=== PATIENT | male | born 1985 | race Caucasian/White ===

== ENCOUNTER 2017-12-21 12:42 | Emergency (ER) | payer OTHER, SELFPAY ==
[2017-12-21 12:43] VITALS: BP 155/95; PULSE 79; RESP 12; TEMP 36.8; BMI 31.7
--- NOTE | 2017-12-21 13:03 | RAD_ITS ---
STUDY: X-RAY - RIGHT SHOULDER REASON FOR EXAM: Arm gave out while lifting today with numbness/tingling in right shoulder. TECHNIQUE: 4 view(s) of the shoulder. COMPARISON: None. FINDINGS: There is a small osteophyte of the medial inferior humeral head. There is acromioclavicular joint space narrowing. Normal acromion. Normal humeral head and visualized proximal humerus. The soft tissue structures are unremarkable. Normal visualized pulmonary apex. RAD/Shoulder min 2 Views IMPRESSION: Acromioclavicular arthrosis. Small osteophyte of the humeral head. No demonstrated fracture. Electronically Signed: Loc Ibrahim MD at 13:35 EDT Tel , Service support ,
--- NOTE | 2017-12-21 13:16 | ED.VISSUMM ---
- ER Visit Summary Date of Service: 12/21/17 Chief Complaint: Right shoulder pain History of Present Illness: The patient is a 32 M who sees [employer]. He is right-hand dominant. Reports approximately an hour and a half ago he was benching 100 pound dumbbells and was group home up when he had the abrupt onset of numbness and tingling throughout his entire right arm and he lost control and the dumbbell fell onto his chest. Reports that the paresthesias have now resolved. However, when he tries to abduct his arm feels weak. Reports initially he had a sharp pain in both the anterior posterior areas of his deltoid that was 8 out of 10 severity. Pain is now 2 out of 10 severity. Is worsened by pressure, abduction, or external rotation. Is relieved by rest. Patient reports that he has had problems with his shoulder off and on for years. Physical Examination: Vitals: Stable. Afebrile. General: Well-nourished and well-developed. Head: Normocephalic atraumatic. Neck: Supple, no lymphadenopathy. No JVD. Nontender. Cardiovascular: Regular rate and rhythm. No murmurs. Respiratory: No respiratory distress. Clear to auscultation bilaterally. Abdominal: Soft, nontender, nondistended, normal bowel sounds. No guarding, rebound, or peritoneal signs. Back: Nontender. Extremities: Mild tenderness to palpation to the anterior and posterior deltoid on the right. Pain with abduction active greater than passive. Minimal pain with external rotation. He has good range of motion without difficulty. Is a 2+ radial pulse. He has normal sensation to light touch in the C5-T1 distribution. He has normal median, ulnar, and radial nerve function both motor and sensory distributions.. Skin: Normal color, no rash. Neurologic: Alert and oriented ?3. Cranial nerves II through XII are intact. Normal strength and sensation. Psych: Normal affect. Test Results: Right shoulder x-ray shows no acute disease. Emergency Department Course and Treatment: Had a prolonged discussion with the patient about possible causes for this. There is the possibility that he has a torn labrum and had a subluxation of his shoulder while lifting that pushed on the brachioplexus and that caused the paresthesias. Also discussed possibility of a rotator cuff tear. He does understand that to diagnose these he will need an MRI. Treatment Plan: Patient will be discharged instructions to follow-up Dr. Lau in 1 week if not improving. Return to the emergency department for any worsening symptoms. Disposition: To home in improved and stable condition. Impression: 1. Right shoulder pain, uncertain cause. This note was generated with [employer] dictation software. It may contain incorrect words, spelling, and punctuation that were not noted in review of the chart prior to signing ED Disposition - Plan for ED Patient: Chief Complaint: Upper Extremity Injury Instructions: ED Shoulder Pain [facility] Referrals: Miguelangel Lau DO [STAFF PHYSICIAN] - 1 Week if not improving
--- NOTE | 2017-12-21 13:20 | ED.DCSUM_ITS ---
- ER Visit Summary Date of Service: 12/21/17 Chief Complaint: Right shoulder pain History of Present Illness: The patient is a 32 M who sees [id number]. He is right-hand dominant. Reports approximately an hour and a half ago he was benching 100 pound dumbbells and was [facility] up when he had the abrupt onset of numbness and tingling throughout his entire right arm and he lost control and the dumbbell fell onto his chest. Reports that the paresthesias have now resolved. However, when he tries to abduct his arm feels weak. Reports initially he had a sharp pain in both the anterior posterior areas of his deltoid that was 8 out of 10 severity. Pain is now 2 out of 10 severity. Is worsened by pressure, abduction, or external rotation. Is relieved by rest. Patient reports that he has had problems with his shoulder off and on for years. Physical Examination: Vitals: Stable. Afebrile. General: Well-nourished and well-developed. Head: Normocephalic atraumatic. Neck: Supple, no lymphadenopathy. No JVD. Nontender. Cardiovascular: Regular rate and rhythm. No murmurs. Respiratory: No respiratory distress. Clear to auscultation bilaterally. Abdominal: Soft, nontender, nondistended, normal bowel sounds. No guarding, rebound, or peritoneal signs. Back: Nontender. Extremities: Mild tenderness to palpation to the anterior and posterior deltoid on the right. Pain with abduction active greater than passive. Minimal pain with external rotation. He has good range of motion without difficulty. Is a 2 + radial pulse. He has normal sensation to light touch in the C5-T1 distribution. He has normal median, ulnar, and radial nerve function both motor and sensory distributions.. Skin: Normal color, no rash. Neurologic: Alert and oriented ?3. Cranial nerves II through XII are intact. Normal strength and sensation. Psych: Normal affect. Test Results: Right shoulder x-ray shows no acute disease. Emergency Department Course and Treatment: Had a prolonged discussion with the patient about possible causes for this. There is the possibility that he has a torn labrum and had a subluxation of his shoulder while lifting that pushed on the brachioplexus and that caused the paresthesias. Also discussed possibility of a rotator cuff tear. He does understand that to diagnose these he will need an MRI. Treatment Plan: Patient will be discharged instructions to follow-up Dr. Lau in 1 week if not improving. Return to the emergency department for any worsening symptoms. Disposition: To home in improved and stable condition. Impression: 1. Right shoulder pain, uncertain cause. This note was generated with [employer] dictation software. It may contain incorrect words, spelling, and punctuation that were not noted in review of the chart prior to signing ED Disposition - Plan for ED Patient: Chief Complaint: Upper Extremity Injury Instructions: ED Shoulder Pain [facility] Referrals: Miguelangel Lau DO [STAFF PHYSICIAN] - 1 Week if not improving
[2017-12-21 13:49] VITALS: BP 134/83; PULSE 63; RESP 16; O2SAT 98
== END 2017-12-21 13:50 | disposition home or self-care (01) ==
PROVIDERS: Emergency Provider Emergency Medicine; Family Provider Family Medicine; PCP Family Medicine
DX: M25.511 Pain in right shoulder (principal); F17.220 Nicotine dependence, chewing tobacco, uncomplicated
CPT/HCPCS: 73030; 99282

== ENCOUNTER → 2019-10-17 | Outpatient (CLI) | payer OTHER, SELFPAY ==
--- NOTE | 2019-10-17 15:47 | MRI_ITS ---
STUDY: MRI LEFT ANKLE WITHOUT CONTRAST REASON FOR EXAM: Male, 34 years old. left ankle pain, lateral foot and ankle pain, medial tarsal pain, injury 2 yrs ago TECHNIQUE: Standardized fat and water weighted pulse sequences were obtained in all 3 orthogonal planes. COMPARISON: Left ankle x-ray dated November 11, 2015 FINDINGS: No visualized occult fracture or marrow edema. No visualized osteochondral defect. There is mild narrowing of the posterior talocalcaneal articulation and the associated osseous resulting in minimal degenerative-type edema on both sides of the articulation and a small effusion around this region. Mild patchy edema is present in the anterior process of the talus as well as the calcaneus and throughout the cuboid bone. Minor patchy edema is present in the navicular bone which also show some minor cortical erosions and mild osteophyte formation. Mild osteophyte formation is also present in the navicular cuneiform articulations on the dorsal surface. Edema is also seen in the joint capsule lining compatible with synovitis. Mild subcutaneous edema is present. Normal posterior tibialis tendon. Normal flexor digitorum longus tendon. Normal flexor hallucis longus tendon. Normal peroneus longus and brevis tendons. Normal tibialis anterior tendon. Normal extensor hallucis longus tendon. Normal extensor digitorum longus tendons. Normal Achilles tendon and teno-osseous insertion. Normal plantar fascia. Normal plantar calcaneal tubercles. Normal intrinsic muscles of the rearfoot. Normal distal tibiofibular syndesmotic ligamentous complex. Normal lateral ligamentous complex. Normal subtalar ligaments and sinus tarsi. Normal deltoid ligamentous complexes. Normal plantar calcaneonavicular (spring) ligament. Normal tibiotalar articulation. Normal talar dome. MRI/Lower Ext Joint Only (Routine) IMPRESSION: 1. Findings can be seen with either combined degenerative and inflammatory osteoarthritis as well as early Charcot arthropathy. 2. Edema is also seen in the joint capsule lining compatible with synovitis. Electronically Signed: Brando Paz MD at 23:28 EDT , Service support ,
== END | disposition home or self-care (01) ==
LOC: MRI 15:35
PROVIDERS: PCP Nurse Practitioner Family; Referring Provider Podiatrist Foot & Ankle Surgery; Visit Provider Podiatrist Foot & Ankle Surgery
DX: M19.072 Primary osteoarthritis, left ankle and foot (principal)
CPT/HCPCS: 73721

== ENCOUNTER 2019-11-15 19:11 | Observation (INO) | payer OTHER, SELFPAY ==
--- NOTE | 2019-11-11 13:32 | HP.PCM_ITS ---
History and Physical History and Physical Patient Name: Martínez Deras : 1985 From: LASHAE GERMAIN NP DATE OF SURGERY: 11/15/2019 SCHEDULED PROCEDURE: Left subtalar joint fusion, talonavicular joint fusion and gastrocnemius recession HISTORY OF PRESENT ILLNESS: Preoperative history and physical exam was performed on November 09, 2019. This is a 34-year-old male who has been having left foot and ankle pain for over 2 years. The patient states he injured his left foot and ankle while helping a friend move and stepped off a curb rolling his left foot and ankle. He did not initially seek treatment for the pain. Since the injury he has had increased pain in the area. He is an active person and enjoys to run. 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 These activities increase the pain. The pain is located around his ankle and in the middle of the foot. He experiences pain, pressure and swelling in the left foot and ankle. He describes the pain as aching and sharp. The pain is 10 on a scale of 10 at worst, 5 on a scale of 10 on average and 2 on a scale of 10 at best. The pain is made worse with stairs, running and walking. Previous treatments include rest, elevation, ice and nonsteroidal anti-inflammatories. He denies any fevers, chills, nausea, vomiting, shortness of breath or chest pain. He denies calf pain. He denies any pertinent medical history. After failing conservative measures and discussing treatment options with Dr. Landon Melendez the patient does wish to proceed with a left subtalar joint fusion, talonavicular joint fusion and gastrocnemius recession. REVIEW OF SYSTEMS: ROS: Const: Denies change in appetite, fever and weight change. CV: Denies chest pain, heart murmur and irregular heartbeat. Resp: Denies cough, pneumonia, shortness of breath, tuberculosis and wheezing. GI: Denies constipation, diarrhea, heartburn, nausea, rectal itching, bloody stools and vomiting. : Denies incontinence. Musculo: Admits to left foot/ankle swelling and pain. Skin: Reports tattoo, but denies Raynaud's and history of shingles. Neuro: Reports numbness/tingling but denies ambulatory dysfunction, dizziness and tremor. Psych: Denies anxiety, insomnia and stress. Justin/Lymph: Denies anemia, bleeding/bruising tendency and past transfusion. Reviewed, no changes. PAST MEDICAL HISTORY: Advance Care Plan: No Advance Directives Effective Date: 12/27/2017 PMH: Medical Problems: Arthritis Accidents: Fracture - (1998) SKULL CHEEKBONE Sports Related Injury - LT KNEE ACL Surgical Hx: LT ACL Repair Skull Surgery - W/METAL PLATES IN FORHEAD Tonsillectomy Anesthesia Complications: None Assistive Devices: Glasses, Contacts Reviewed and updated. 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 Personal Habits: Cigarette Use: Never Smoked Cigarettes.Smokeless Tobacco: Current Smokeless Tobacco User.E-Cigarette Use: Smoker, current status unknow.Alcohol: Occasionally.Drug Use: Denies Use.Enjoy Exercising: Daily. Reviewed, no changes. VITALS: Ht: 71.5 Wt: 240lb Wt k.864 BMI: 33.0 BP: 118/80 Pulse: 70 Resp: 16 T: 97.4 T: 36.3C ALLERGIES: No Known Drug Allergy MEDICATIONS: Doxycycline Hyclate 100 mg 1 by mouth twice a day, Aspirin 325 mg 1 by mouth twice a day x 14 days, Hydrocodone-Acetaminophen 5-325 mg 1-2 by mouth 4-6 hours as needed pain, Diclofenac Sodium 1 % apply to affected area up to 4 times daily PRE-OP EXAM: General appearance:NORMAL Other: Eyes: Conjunctivae and lids: NORMAL Pupils: ERR Ears, Nose, Mouth, and Throat: NORMAL Other: Inspection of lips, teeth and gums: NORMAL Other: Respiratory: Assessment of respiratory effort: NORMAL Other: Auscultation of lungs: clear to auscultation no wheezes, rhonchi or rales. Cardiovascular: Auscultation of heart: regular rate and rhythm, no murmurs, gallops or rubs. Gastrointestinal: Exam of abdomen: soft, nontender, nondistended bowel sounds present. Neurological: see below Psychiatric: Orientation to time, place and person: NORMAL Other: Mood and affect: NORMAL Other: PHYSICAL EXAMINATION: Const: Appears the stated age and well nourished. No signs of acute distress present. CV: Pedal pulses: palpable. Extremities: No edema of the lower limbs bilaterally. No venous insufficiency noted. Capillary refill is < 3 seconds. Temperature is warm and equal bilaterally. No tenderness on compression of the gastrocnemius muscle. Musculo: Walks with a markedly left antalgic gait. Evidence of moderately pronated left foot when compared to the contralateral side. Evidence of calcaneal valgus deformity noted with a decrease in arch height noted upon weightbearing. Positive too many toe sign of the left lower extremity. Knees: Special Tests: Agustín's sign is negative on the left. Ankles: Insp/Palp: Left ankle: positive tenderness upon palpation and compression of the area of the anterior talofibular ligament of the left ankle. No other areas of tenderness noted of the left ankle. Stability: No instability of the left ankle. No instability of the right ankle. Strength: Dorsiflexion 5/5 on the left. Plantarflexion 5/5 on the left. Eversion 5/5 on the left. Inversion 5/5 on the left. ROM: Left ankle: full active plantar flexion. Limited active dorsiflexion. PROM: Left dorsiflexion with knee extended is decreased. Left dorsiflexion with knee flexed is limited positive for equinus contracture. Left plantar flexion is normal. Special Tests: Anterior drawer test is negative on the left and is negative on the right. Heel Rise: painful, heel does not invert, arch reconstitutes and positive for too many toes on the left. Talar tilt is equal as compared to the opposite side. Hindfoot: Insp/Palp: Significant pain on palpation and compression of the left hindfoot in the area of the sinus tarsi and subtalar joint. Significant restricted eversion and inversion of the left subtalar joint when compared to the contralateral side. No other areas of tenderness noted. Feet: Insp/Palp: Left foot normal to inspection. Positive tenderness upon palpation and compression of the dorsal aspect of the tarsometatarsal joint of the left foot. No other areas of tenderness of the left foot. Strength: 5/5 on the left. Toes: Insp/Palp: Normal to inspection. Skin: No ecchymosis, lesion, rash or ulcerations located on the feet. No maceration located on the toes. Neuro: Alert and oriented x3. Sensation intact to light touch. Negative Tinel's sign of the left foot. Negative Valleix sign of the left foot. IMAGING STUDIES: 3 views of left foot obtained on October 09, 2019 including AP, lateral and medial oblique views reveal significant degenerative joint disease noted in the subtalar joint. There is no evidence of tarsal coalition present. Significant degenerative joint disease noted throughout the midtarsal joint specifically in the talonavicular joint. Evidence of bone spur formation throughout. The tarsometatarsal joint of the left foot reveals minimal degenerative joint disease. His planus deformity revealed with a decrease in the calcaneal inclination angle and increase in the talar declination angle. There is evidence of first metatarsal elevation and abduction of the forefoot against the midfoot and rear foot. MRI of left ankle obtained on October 17, 2019 reveals no occult fracture or marrow edema. No visualized osteochondral defect. There is narrowing of the posterior talocalcaneal articulation and the associated osseous resulting in degenerative type edema on both sides of the articulation with the fusion. Mild patchy edema noted in the anterior process of the talus, calcaneus and throughout the cuboid. Patchy edema noted in the navicular bone with cortical erosions and osteophyte formation. Osteophyte formation in the navicular cuneiform articulations. Normal posterior tibialis tendon. Normal flexor digitorum longus and flexor Hallucis longus. Normal distal tibial fibular syndesmotic ligamentous complex. Normal lateral ligamentous complex. IMPRESSION: 1. Left foot and ankle osteoarthritis 2. Shortened Achilles tendon 3. Pes planus, left foot and ankle 4. Left foot and ankle joint pain PLAN: Dr. Landon Melendez did discuss and review with the patient all treatment options including surgical versus nonsurgical. The patient does wish to proceed with the above-stated procedure. Potential risk, benefits and complications of the procedure were discussed in detail including but not limited to , infection, nerve and blood vessel damage, persistent pain, numbness, tingling, paresthesia, blood clot, pulmonary embolism and requirement for possible further surgery. The patient expressed full understanding and has no further questions for the doctor. The patient does agree to proceed with the above-stated procedure and has signed the surgery consent form. He was given the following prescriptions at his preoperative visit: Vicodin, doxycycline and aspirin. He was instructed to bring a walker or crutches to the hospital the day of surgery. Discussed with the patient the risks associated with the COVID-19 virus including the risk of exposure while at the hospital. The patient was reassured local hospitals have low infection rates and taken all necessary precautions to limit patient exposure to COVID-19. Limiting the patient's time in the hospital may decrease their exposure to COVID-19. The patient was notified that we will need to comply with any screening or testing the hospital wishes to perform and that surgery may be delayed for any positive test results. This dictation was created using voice recognition software. Phonetic and/or grammatical errors may exist. ___ I have re-examined the patient. There are no clinical changes since date of exam. ___ See progress notes for changes. ___ Dictated on admission Date: Time: Signature:
--- NOTE | 2019-11-12 09:45 | RAD_ITS ---
STUDY: X-RAY CHEST REASON FOR EXAM: Male, 34 years old. HTN. NO CHEST COMPLAINTS TODAY. PRE-OP TECHNIQUE: PA and lateral views of the chest. COMPARISON: None. FINDINGS: The lungs are clear and expanded. There is no demonstrated pleural abnormality. Normal size heart. Normal mediastinum and milan. Normal visualized pulmonary arteries. Normal visualized aortic arch and descending thoracic aorta. Normal visualized thoracic spine. Normal visualized ribs, clavicles, and shoulders. There is no demonstrated abnormality of the visualized soft tissue structures of the upper abdomen. RAD/Chest PA and Lateral IMPRESSION: Normal x-ray examination of the chest. Electronically Signed: Sid Alvarado, at 10:28 EDT , Service support ,
--- NOTE | 2019-11-12 10:05 | EKG12_ITS ---
Test Reason : HTN Blood Pressure : / mmHG Vent. Rate : 078 BPM Atrial Rate : 078 BPM P-R Int : 122 ms QRS Dur : 094 ms QT Int : 400 ms P-R-T Axes : 071 087 056 degrees QTc Int : 456 ms Normal sinus rhythm Normal ECG Confirmed by CARLOS HINKLE, DEBBI ([id number]), graphics editor LO MELENDEZ ([id number]) on 11/13/2019 10:09:25 AM Referred By: Landon Melendez Confirmed By:DEBBI GONZALEZ MD
[2019-11-12 10:13] LABS: Absolute Lymphocyte Count 1.59 X10^3/uL (0.83-4.51); Absolute Neutrophil Count 5.1 X10^3/uL (2.0-7.7); Basophil# 0.05 X10^3/uL; Basophil% 0.7 % (0-1); Eosinophils% 1.3 % (0-5); Hemoglobin 16.9 g/dL (13.0-16.5); Lymphocyte # 1.59 X10^3/ul (4.0); Lymphocyte % 21.3 % (19-41); Mean Corp Hgb Conc 35.2 g/dL (32-36); Mean Corpuscular Volume 93.8 fL (80-94); Mean Platelet Vol. 9.2 fl (6.2-12.0); NRBC Flagged by Analyzer 0 % (0-5); Neutrophil # 5.07 X10^3/uL (2.7-7.7); Neutrophil % 67.9 % (47-70); Platelet Count 278 K/mm3 (150-450); RBC Distribution Width CV 11.9 % (11.6-14.6); RBC Distribution Width SD 40.6 fl (35.1-43.9); Red Blood Count 5.12 M/mm3 (4.6-6.2); White Blood Count 7.5 K/mm3 (4.4-11.0)
[2019-11-12 10:36] LABS: International Normalized Ratio 1.1; Prothrombin Time (Protime)PT. 13.4 SECONDS (11.7-14.9)
[2019-11-12 10:45] LABS: Anion Gap 6 (5-15); BUN 24 mg/dL (7-18); BUN/Creat Ratio 22.2 RATIO (10-20); CRP < 2.90 mg/L (0.0-3.0); Chloride 102 mmol/L (98-107); Creatinine, Serum 1.08 mg/dL (0.70-1.30); EST Glomerular Filtration Rate 82 mL/min (>60); Est Glom Filt Rate - Afr Amer 100 mL/min (>60); Glucose 149 mg/dL (74-106); Rheumatoid Factor < 10.0 IU/mL (<15); Sodium Level 139 mmol/L (136-145); Uric Acid 9.9 mg/dL (3.5-7.2)
[2019-11-12 10:49] LABS: Erythrocyte Sedimentation Rate 1 mm/hr (0-15)
[2019-11-13 12:27] LABS: ANTINUCLEAR ANTIBODIES DIRECT Negative (Negative)
[2019-11-15] VITALS (14 sets, daily range): BP systolic 117–143; BP diastolic 67–95; PULSE 58–104; RESP 16–28; TEMP 36.4–37.5; O2SAT 90–99; BMI 32.9; BMI 35.2; BMI 35.3
[2019-11-15] MEDS: Lactated Ringers 1,000 ML 100 ML IV ×4 (11:19→22:18)
[2019-11-15] MEDS: Cefazolin 2 GM in 0.9% Normal Saline 100 ML IV ×2 (12:44→23:22)
--- NOTE | 2019-11-15 13:03 | RAD_ITS ---
STUDY: X-RAY - LEFT ANKLE REASON FOR EXAM: Male, 34 years old. left subtalar joint effusion, talonavicular fusion TECHNIQUE: 3 view(s) of the ankle. COMPARISON: None. FINDINGS: Multiple intraoperative images are presented. Images demonstrate talonavicular and posterior subtalar fusions with grossly normal alignment. RAD/Ankle min 3 Views IMPRESSION: Postoperative changes as described. Electronically Signed: Dixon Rasmussen MD at 19:45 EDT Tel , Service support ,
--- NOTE | 2019-11-15 19:24 | DCINST_ITS ---
Discharge Diet: No Restrictions Discharge Activity: May Not Drive, May Not Shower, Use Walker, Use Crutches Ice area for (Minutes): 20 Weight Bearing Status: No weight bearing Keep extremity elevated above heart level: Left Leg Additional Activity Instructions:: 1. Keep the dressing clean, dry, intact to the left foot and leg. Do not get dressing wet. If get dressing wet, call office for further instructions. 2. Ice around the left knee 20 minutes on, 20 minutes off, every hour while awake for the next 2 weeks. 3. Elevate left foot above level of heart as often as possible for the next 2 weeks. 4. No walking or standing on left foot. Use crutches/walker/knee scooter as needed. 5. Begin taking Vicodin, doxycycline (antibiotic) and aspirin upon discharge. Vicodin is to be taken as needed. Doxycycline and aspirin are to be taken as instructed, beginning on 11/16/2019 Call your doctor if your incision/area has: Sudden Increased Bleeding, Increased Pain/ Swelling Call your doctor if you observe: Fever of 101 or Higher, Coldness, Increased Pain, Inability to have a bowel movement, Shortness of breath, Chest pain, Prolonged hiccoughing, Increased palpitations (irregular heartbeat), Calf discomfort, Uncontrolled pain Change Dressing in (Days):: 0 - DO NOT REMOVE DRESSING Cleanse incision/area with: Keep Dressing Clean & Dry Allergies/Adverse Reactions: Allergies No Known Allergies Allergy (Verified 11/15/19 11:00) Medications to take at Discharge Acetaminophen [Tylenol Extra Strength] 500 - 1,000 mg PO Q6H PRN PRN 11/12/19 Primary Care Physician: Sri Gordon NP-C [Primary Care Provider] - Test Results: Test results from this visit will be discussed in further detail at your follow- up appointment, if applicable. Please Follow Up With: Landon Melendez DPM When: at pre-scheduled appointment Proposed Discharge Date: 11/16/19
--- NOTE | 2019-11-15 19:35 | PCM.OPRPT ---
Problem List (1) Acquired deformity of left foot Status: Chronic (2) Osteoarthritis of left foot Status: Chronic Qualifiers: Osteoarthritis type: post-traumatic Qualified Code(s): M19.172 - Post-traumatic osteoarthritis, left ankle and foot Report of Operation Date of Procedure: 11/15/19 Pre-Operative Diagnosis: 1. Posttraumatic osteoarthritis, left foot. 2. Acquired deformity, left foot. 3. Pain in left foot Post-Operative Diagnosis: Same as preoperative Surgery/Procedure Performed:: 1. Left foot subtalar joint fusion. 2. Left foot talonavicular joint fusion. 3. Left leg gastrocnemius recession. 4. Application of bone graft left foot Description of Surgical Findings:: Consistent with diagnosis. Significant degenerative joint disease was noted throughout the left subtalar joint and the left talonavicular joint. The joints were pseudo-fused. These were difficult to get access to. registered public surveyor: Elizabeth Bagley Type of Anesthesia:: General/Regional - with a left popliteal and saphenous block Anesthesiologist: Abdirahman Harvey Special Medications: 2 grams of ancef given preoperatively Drains: None Estimated Blood Loss (mL): 150 Fluids Replaced: 2500mL Description of Procedure: Anesthesia: General with a popliteal and saphenous block to left lower extremity. Hemostasis: Pneumatic thigh tourniquet placed at the level of the left thigh at 300 mmHg for 20 minutes, deflated for 15 minutes, elevated for 120 minutes, deflated for 15 minutes, and reinflated for an additional 105 minutes. Materials: 1. Falling Waters midfoot CP plate long. 2. Falling Waters 4.1 mm x 44 mm CP screw. 3. Falling Waters Vitoss. 4. Ofelia 3.5 x 24 mm nonlocking screw. 5. Ofelia 3.5 x 12 mm locking screw. 6. Ofelia 3.5 x 14 mm locking screw. 7. Ofelia 3.5 x 16 mm locking screw. 8. Falling Waters 6.5 x 90 mm partially-threaded screw x2. 9. Size 0 Vicryl. 10. Size 2-0 Vicryl. 11. Size 3-0 Vicryl. 12. Size 3-0 nylon. 14. Size 0 Prolene. Injectables: None Complications: Significant degenerative joint disease noted throughout the foot and difficulty obtaining resection of these joints. Condition: Stable Indications: This is a 34-year-old male with no significant past medical history who has been having left foot and ankle pain for over 2 years. The patient states he injured his left foot and ankle while helping a friend move and stepped off a curb, rolling his left foot and ankle. He did not initially seek treatment for the pain. Since the injury he has had increased pain in the area. He is an active person and enjoys to run. 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 These activities increase the pain. The pain is located around his ankle and in the middle of the foot. He experiences pain, pressure and swelling in the left foot and ankle. He describes the pain as aching and sharp. The pain is 10 on a scale of 10 at worst, 5 on a scale of 10 on average and 2 on a scale of 10 at best. The pain is made worse with stairs, running and walking. Previous treatments include rest, elevation, ice and nonsteroidal anti-inflammatories. 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 Due to the significant deformities that were present, an MRI was ordered. This confirmed the diagnosis, and did not reveal a tarsal coalition. This did not reveal any other structural damage. I discussed with the patient conservative therapies for this. This included custom orthotics, custom bracing, cortisone injections, and physical therapy. Patient states that he has been dealing with this pain for over 2 years, and has tried some [id number] remedies. These did not work. Patient declined orthotics, custom bracing, injections. Patient stated that he wanted definitive intervention. I did discuss with the patient that a subtalar joint fusion along with a talonavicular joint fusion and a gastrocnemius recession can be performed. After multiple discussions were had with the patient about conservative and surgical interventions, I recommended conservative therapy to begin with. Patient states that he did not want to employ conservative therapy, and wanted surgical intervention. I did discuss the risks, benefits, possible outcomes, possible complications of the procedure. This included but not limited to delayed or nonhealing wounds, delayed or nonhealing bone, nonunion, delayed union, infection, DVT, loss of function of limb, loss of limb, loss of life. Patient displayed verbal understanding. After discussion with his significant other, he wanted to proceed with surgical intervention. Operative report: Before the patient was brought to the operating room, the risks, benefits, possible outcomes, possible complications of the surgical intervention were discussed with the patient once again. These included but were not limited to delayed or nonhealing wounds, delayed or nonhealing bone, nonunion, delayed union, infection, DVT, loss of limb, loss of life. All the patient's questions were answered to his satisfaction and all of his concerns were addressed. No guarantees were made as to the outcome of the procedure. Patient understood all aspects of the procedure, and consent was then signed by the patient. Before the patient brought to the operating room, the anesthesiologist administered a popliteal and saphenous block to left lower extremity. Patient was then brought to the operating room and placed on the operating table in supine position. Adequate padding was placed and all pressure points. After timeout, under general anesthesia, anesthesia took control of the airway. Next, well-padded pneumatic thigh tourniquet was placed to level of the left thigh. The left foot, ankle, leg were then scrubbed, prepped, draped in the usual sterile manner. Elevation of the left lower extremity was followed by exsanguination via Esmarch and inflation of pneumatic thigh tourniquet to 300 mmHg. At this time, the patient's left leg was placed in a frog-leg position. This was to gain access to the posterior calf and musculature compartment. The inferior border of the medial gastrocnemius head was palpated and marked. Next, 3 cm distal was then measured and a marking was made at the midline of the posterior left calf at this marking. Next, #15 blade was used to perform a linear longitudinal incision starting 1 cm proximal to this marking extending distally approximately 2 cm. This incision was approximately 3 cm in length. This incision was deepened utilizing sharp and blunt dissection. Care was taken to retract all vital neural and vascular structures. The sural nerve and the small saphenous vein were identified and retracted. All bleeders were cauterized and ligated as necessary. This time, the fascia was incised in a similar fashion to that of the skin incision. The fascia was then reflected medially and laterally, thus exposing the gastrocnemius aponeurosis. Next, a tongue in groove gastrocnemius recession was performed with the base of the tongue proximally and the tongue extending distally. The width of the time was approximately 1 cm. Care was taken make sure that the foot was held in a forced dorsiflexed position as the gastrocnemius recession was performed. After this was performed, a significant increase in the dorsiflexory component of the left foot at the level of the ankle was noted. The surgical site was irrigated with copious amounts normal sterile saline. The pneumatic thigh tourniquet was then released, and a prompt hyperemic response noted to the entirety of the left lower extremity. The portion of the gastrocnemius aponeurosis for the tongue was reapproximated and coapted to the distal gastrocnemius aponeurosis utilizing size 2-0 Vicryl. The subcutaneous tissue was reapproximated coapted utilizing 2-0 Vicryl. The skin was reapproximated coapted utilizing 3-0 nylon in a simple interrupted and horizontal mattress fashion. At this time, live radiographic evaluation was used to determine the level of the medial malleolus, talonavicular joint, navicular cuneiform joint. These were then marked on the patient. Radiograph evaluation was also used to determine the distal tip of the lateral malleolus, subtalar joint, and base of the fourth metatarsal. These were marked on the patient as well. Next, the left lower extremity was elevated and exsanguinated via Esmarch and inflation pneumatic thigh tourniquet was performed to 300 mmHg. Attention was then directed to the lateral aspect of the left subtalar joint. At this time, #15 blade was used to perform a curvilinear incision starting 1 cm distal to the lateral malleolus extending distally and superiorly to the base of the fourth metatarsal. This incision was deepened utilizing sharp and blunt dissection. Care was taken to retract all vital neural and vascular structures. All bleeders were cauterized and ligated as necessary. At this time, the peroneal tendons were then identified. The peroneal tendon sheath was transected in a longitudinal fashion. The peroneal tendons were then retracted inferiorly. At this time, the capsule of the subtalar joint was identified and sharply incised. Care was taken make sure to protect the calcaneal fibular ligament during this dissection. Of note during this dissection was a significant amount of osteoarthritis contained within the subtalar joint. Once adequate soft tissue dissection was performed, and the interosseous talocalcaneal ligament was identified and transected, and Hinterman retractor was used to distract the subtalar joint. At this time, the cartilage was removed from the calcaneal posterior, middle, anterior facets and the talar posterior, middle, anterior facets. This was removed utilizing osteotomes, curettes, rongeurs. Once adequate resection of the cartilage of the subtalar joint was performed, the surgical site was irrigated with copious amounts of normal sterile saline. Next, fish scaling was performed via osteotomes and a mallet, and subchondral drilling was performed via a 2-0 drill bit. Next, Ofelia Vitoss was placed into the subtalar joint. Attention was then directed to the dorsal medial aspect of the talonavicular joint of the left foot. At this time, #15 blade was used to perform a linear longitudinal incision starting on the dorsal medial aspect of the neck of the talus extending distally to the dorsal medial aspect of the medial cuneiform. This incision was deepened utilizing sharp and blunt dissection. Care was taken to retract all vital neural and vascular structures. All bleeders were cauterized and ligated as necessary. At this time, radiograph evaluation was used to determine the level of the talonavicular joint. Once identified, the joint capsule was transected and dissected. Next, a Hinterman retractor was used to distract the talonavicular joint. Significant degenerative joint disease was noted at the talonavicular joint. At this time, the cartilage on the head of the talus and on the base of the navicular was resected utilizing curettes, osteotomes, rongeurs. Furthermore, a bur was used to resect the cartilage as well. Once adequate resection was performed, the surgical site was irrigated with copious amounts of normal sterile saline. Next, an osteotome with a mallet was used to fish scale the talonavicular joint. Then, a 2-0 drill bit was used to perform subchondral drilling in the talus and the navicular. At this time, a Falling Waters Vitoss was placed into the talonavicular joint. The talonavicular joint was then reduced and held via temporary fixation. This positioning was confirmed upon radiographic evaluation. The pneumatic thigh tourniquet was then released and a prompt hyperemic response was noted to the entirety of the left lower extremity. This was then released for a period of 15 minutes. Once this past, the left lower extremity was elevated and exsanguinated via Esmarch and inflation of the pneumatic thigh tourniquet was performed once again to 300 mmHg. At this time, attention was then directed back to the subtalar joint. The subtalar joint was then held in 5 degrees valgus, and this was confirmed upon radiographic evaluation. With holding this position, the pin for the 6.5 cannulated screw was placed from the inferior aspect of the calcaneal tuber aiming at the neck of the talus. A second pin was placed medial to this. Positioning of these pins was confirmed upon radiographic evaluation in the lateral ankle, anterior ankle, and calcaneal axial views. Once adequate positioning of these pins was had, drilling of these pins was then performed. At this time, two 6.5 x 90 mm cannulated partially-threaded screws were placed over the pins and inserted. Care was taken make sure that the subtalar joint was held in 5 degrees valgus during insertion of the screws. Of note during insertion of the screws was the adequate compression of the subtalar joint. Furthermore, no shifting any of the portions of the subtalar joint occurred during insertion of the screws. Once her screws were fully inserted, the pins were then removed. Radiographic evaluation was then performed. The screws in the subtalar joint were noted to be adequate length and well contained within the calcaneus and the talus. This positioning was confirmed once again on the lateral, ankle AP, and calcaneal axial. They were noted to reduce the subtalar joint and held the subtalar joint in the corrected position. Attention was then directed back to the dorsal medial aspect of the left foot in the area of the talonavicular joint. At this time, the Ofleia CP plate was placed over the dorsal medial aspect of the talonavicular joint. Positioning of this was confirmed upon radiographic evaluation. Once positioning was confirmed, the 2 distal holes were locked down. At this time, the CP compression screw was placed in standard fashion. Just before compression was had at the talonavicular joint, all temporary fixation was then removed. Compression of the talonavicular joint was performed through the plate at the CP hole. Once adequate compression of the talonavicular joint was performed, the 2 proximal holes in the plate were adhered to the bone utilizing nonlocking and locking screws. Of note during insertion of all screws and the plate was the adequate compression of the plate to the bone and adequate compression of the talonavicular joint. Furthermore, no shifting of any of the fragments occurred during insertion of the screws. Once all screws were fully inserted, radiograph evaluation was then performed. The talonavicular joint was noted to be held in the corrected position and was noted to be compressed. Furthermore, the plate did not shift during insertion of the screws. Final radiographs were then performed of the foot and the ankle. The subtalar joint was noted to be in adequate position and the hardware was noted to hold the subtalar joint in the position. Furthermore, the talonavicular joint was noted to be in adequate position and the hardware was noted to hold the talonavicular joint in the adequate position. At this time, deep closure was performed of the lateral incision and the dorsomedial incision utilizing size 0 Vicryl and size 2-0 Vicryl. At this time, the pneumatic thigh tourniquet was then released. A prompt hyperemic response noted to the entirety of the left lower extremity. All bleeders were cauterized and ligated as necessary. Attention was then directed back to the lateral surgical site. The subcutaneous tissues were then reapproximated and coapted utilizing 2-0 Vicryl and 3-0 Vicryl. The skin was reapproximated coapted utilizing 3-0 nylon in a simple interrupted and horizontal mattress fashion. Attention was then directed back to the dorsal medial surgical site. Subcutaneous tissues were reapproximated and coapted utilizing size 2-0 Vicryl and 3-0 Vicryl. The skin was reapproximated coapted utilizing 3-0 nylon in a simple interrupted and horizontal mattress fashion. The insertion sites on the posterior inferior aspect of the calcaneus for the 6.5 screws were reapproximated and coapted utilizing 2-0 Vicryl for the subcutaneous tissue and size 0 Prolene for the skin. Each surgical site was then dressed with Betadine soaked gauze, and a dry sterile dressing consisting of 4 x 4 gauze, ABD pads, wrapped with Kerlix. The left foot and ankle were then wrapped with an Alexys bandage. Next, a stockinette was placed over the left lower extremity. Cast padding was wrapped in the metatarsal heads extending proximally to level just distal to the tibial tuberosity. A posterior splint was fashioned to the left lower extremity and was adhered to the left lower extremity utilizing Alexys bandages. Care was taken make sure the foot and ankle held in neutral position as the posterior splint dried. The patient tolerated the anesthesia and the procedure well and was transported to the PACU with vital signs stable and neurovascular status intact to left lower extremity. After period of postoperative monitoring, patient will be admitted for observation for continued pain management. The surgical resident, the nurse practitioner, was utilized throughout the entire procedure. She helped with patient positioning, holding of limb, holding retractors. She helped with exposure throughout. She helped with bandage application and cast application. Without the surgical resident, surgical time would have been increased and surgical outcome could have been less optimal. - Complications Significant degenerative joint disease noted throughout the left subtalar joint and the left talonavicular joint. This led to difficulty in resecting the joints. - Admit VTE Documentation VTE Present on Admission: No VTE Mechan Device Prophylaxis: SCD's VTE Pharm Prophylaxis ordered?: Yes
--- NOTE | 2019-11-15 19:36 | RAD_ITS ---
STUDY: X-RAY - LEFT FOOT CLINICAL: Male, 34 years old. left foot fusion TECHNIQUE: 3 view(s) of the foot. COMPARISON: None. FINDINGS: Multiple surgical fusions involving the hindfoot with normal alignment. No acute fractures. Soft tissues are intact. RAD/Foot min 3 Views IMPRESSION: Multiple surgical fusions involving the hindfoot with normal alignment. Electronically Signed: Dixon Rasmussen MD at 20:53 EDT Tel , Service support ,
--- NOTE | 2019-11-15 19:55 | RAD_ITS ---
STUDY: X-RAY - LEFT ANKLE REASON FOR EXAM: Male, 34 years old. left ankle fusion TECHNIQUE: 3 view(s) of the ankle. COMPARISON: Intraoperative same day FINDINGS: Multiple surgical fusions involving the hindfoot with normal alignment. No acute fractures. Soft tissues are intact. RAD/Ankle min 3 Views IMPRESSION: Multiple surgical fusions involving the hindfoot with normal alignment. Electronically Signed: Dixon Rasmussen MD at 20:47 EDT Tel , Service support ,
[2019-11-15] MEDS: Ipratropium/Albuterol Sulfate 3 ML AMPUL.NEB INHALATION (20:27)
--- NOTE | 2019-11-15 20:32 | SUR.PHASEI ---
CPS at bedside giving DuoNeb aerosol and giving incentive spirometer.
[2019-11-15] MEDS: HYDROcodone Bitartrate/Apap 5/325 Tablet PO (22:04)
[2019-11-16] VITALS (10 sets, daily range): BP systolic 113–121; BP diastolic 57–73; PULSE 69–95; RESP 16–21; TEMP 36.8–37.7; O2SAT 93–99
[2019-11-16] MEDS: 0.9% Saline Lock 10 ML Syringe IV ×2 (00:26→09:00)
[2019-11-16] MEDS: HYDROmorphone 1 MG/ML Syringe IV ×2 (00:26→08:58)
[2019-11-16] MEDS: HYDROcodone Bitartrate/Apap 5/325 Tablet PO ×2 (02:19→06:53)
[2019-11-16] MEDS: Cefazolin 2 GM in 0.9% Normal Saline 100 ML IV (05:47)
[2019-11-16] MEDS: Enoxaparin 40 MG/0.4 ML Syringe SC (05:49)
--- NOTE | 2019-11-16 06:28 | NURSING ---
Pt significant other (Ricky) given phone update with pt permission.
[2019-11-16] MEDS: Ondansetron 4 MG/2 ML Vial IV (08:56)
[2019-11-16] MEDS: Lactated Ringers 1,000 ML 100 ML IV (09:48)
--- NOTE | 2019-11-16 12:08 | PCM.DC.SUM ---
Discharge Date and Diagnosis Date of Admission: 11/15/19 Date of Discharge: 11/16/19 - Primary Discharge Diagnosis Acute Problems: Primary osteoarthritis, left foot and ankle Acquired deformity, left foot and ankle - Secondary Discharge Diagnosis Chronic Problems: Chronic Problems Acquired deformity of left foot (Chronic) Osteoarthritis of left foot (Chronic) Hospital Course and Treatment Imaging Results: STUDY: X-RAY - LEFT FOOT taken on 11/15/2019 postoperatively CLINICAL: Male, 34 years old. left foot fusion TECHNIQUE: 3 view(s) of the foot. COMPARISON: None. FINDINGS: Multiple surgical fusions involving the hindfoot with normal alignment. No acute fractures. Soft tissues are intact. RAD/Foot min 3 Views IMPRESSION: Multiple surgical fusions involving the hindfoot with normal alignment. Electronically Signed: Dixon Rasmussen MD at 20:53 EDT Tel , Service support , STUDY: X-RAY - LEFT ANKLE taken on 11/15/2019 postoperatively REASON FOR EXAM: Male, 34 years old. left ankle fusion TECHNIQUE: 3 view(s) of the ankle. COMPARISON: Intraoperative same day FINDINGS: Multiple surgical fusions involving the hindfoot with normal alignment. No acute fractures. Soft tissues are intact. RAD/Ankle min 3 Views IMPRESSION: Multiple surgical fusions involving the hindfoot with normal alignment. Electronically Signed: Dixon Rasmussen MD at 20:47 EDT Tel , Service support , Operations: - - left subtalar joint fusion, left talonavicular fusion, left gastrocnemius recession Summary of Care Provided: This is a 34-year-old male with no significant past medical history who has been having left foot and ankle pain for over 2 years. The patient states he injured his left foot and ankle while helping a friend move and stepped off a curb, rolling his left foot and ankle. He did not initially seek treatment for the pain. Since the injury he has had increased pain in the area. He is an active person and enjoys to run. 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 These activities increase the pain. The pain is located around his ankle and in the middle of the foot. He experiences pain, pressure and swelling in the left foot and ankle. He describes the pain as aching and sharp. Previous treatments include rest, elevation, ice and nonsteroidal anti-inflammatories. 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 Due to the significant deformities that were present, an MRI was ordered. This confirmed the diagnosis, and did not reveal a tarsal coalition. This did not reveal any other structural damage. I discussed with the patient conservative therapies for this. This included custom orthotics, custom bracing, cortisone injections, and physical therapy. Patient states that he has been dealing with this pain for over 2 years, and has tried some [id number] remedies. These did not work. Patient declined orthotics, custom bracing, injections. Patient stated that he wanted definitive intervention. I did discuss with the patient that a subtalar joint fusion along with a talonavicular joint fusion and a gastrocnemius recession can be performed. After multiple discussions were had with the patient about conservative and surgical interventions, I recommended conservative therapy to begin with. Patient states that he did not want to employ conservative therapy, and wanted surgical intervention. I did discuss the risks, benefits, possible outcomes, possible complications of the procedure. This included but not limited to delayed or nonhealing wounds, delayed or nonhealing bone, nonunion, delayed union, infection, DVT, loss of function of limb, loss of limb, loss of life. Patient displayed verbal understanding. After discussion with his significant other, he wanted to proceed with surgical intervention. Surgery was performed on 11/15/2019. Patient was admitted for observation after surgical intervention. Patient was placed on the progressive care unit floor due to low oxygen saturation levels on 6 L of nasal cannula. Patient was subsequently weaned off of the nasal cannula. Patient had 2 episodes of emesis overnight, but has been now tolerating oral p.o. intake well. Patient admits to pain of left foot and ankle, but is slightly improved. Patient's girlfriend is a nurse, and states that she is able to care for him at home. Due to the improvement in the patient's vital signs along with improvement in pain levels, patient was discharged home with continued instructions and further postoperative care. [] Subjective: Patient seen at bedside resting comfortably. Patient admits to improved pain of left foot and ankle. Patient states that he feels tired, but overall is feeling better since surgical intervention. Patient denies any other acute complaints at this time. Currently, patient denies fever, chills, nausea, vomiting, shortness of breath, chest pain. Patient denies left calf pain. Patient states that he is tolerating food well at this time. Objective: Lower extremity physical exam: Dressing is clean, dry, intact to left lower extremity with no evidence of strikethrough noted. Cap refill time is less than 3 seconds to all digits of the left foot. Digits the left foot are warm when compared to the contralateral extremity. Light touch sensation is intact to digits of the left foot. Foot and ankle appear in a rectus position underneath the tibia at this time. - Physical Exam Vitals/I&O's: Vital Signs Temp Pulse Resp BP Pulse Ox 98.6 F 73 16 113/57 L 96 11/16/19 10:11/16/19 10:11/16/19 10:00 11/16/19 10:11/16/19 10:00 Oxygen Flow Rate (L/min) 2 Oxygen Delivery Method Room Air Weight: 118 kg Body Mass Index (BMI) 35.2 Intake and Output for Last 24 Hours 11/14/19 11/15/19 11/16/19 23:59 23:59 23:59 Intake Total 3220.34 / 3220.34 1595.33 / 1595.33 Output Total 700 / 700 925 / 925 Balance 2520.34 / 2520.34 670.33 / 670.33 General: Alert, Oriented x3, Cooperative, No apparent distress, Well developed, Well nourished HEENT: Atraumatic, PERRLA, EOMI, Normocephalic Oral: Moist Mucosa Neck: Supple, No JVD Lungs: Clear to auscultation, Normal air movement, No rhonchi, No wheeze, No rales Cardiovascular: Regular rate, Regular Rhythm, Normal S1, Normal S2 Abdomen: Bowel Sounds Present, Soft, Non Tender, Non-Distended Extremities: Capillary Refill Less than 3 Seconds Skin: No rashes, No breakdown Neurological: Sensory exam intact to light touch and pain Psych/Mental Status: Alert and oriented to time, place, person, mood and affect Current Medications Acetaminophen (Tylenol) 650 mg PO Q4H PRN PRN PRN Reason: Pain 1-1010 or Fever Hydrocodone Bitart/Acetaminophen ([place] 5mg-325mg) 2 tablet PO Q4H PRN PRN PRN Reason: Pain Score 1-1010 Last Admin: 11/16/19 06:53 Dose: 2 tablet Documented by: Docusate Sodium (Colace) 100 mg PO BID PRN PRN PRN Reason: CONSTIPATION Enoxaparin Sodium (Lovenox) 40 mg SC DAILY@0600 [facility] Last Admin: 11/16/19 05:49 Dose: 40 mg Documented by: Hydromorphone HCl (Dilaudid Inj) 1 mg IV Q2H PRN PRN PRN Reason: Pain Score 6-10/10 Last Admin: 11/16/19 08:58 Dose: 1 mg Documented by: Lactated Ringer's () 1,000 mls @ 100 mls/hr IV .Q10H [facility] Last Admin: 11/16/19 09:48 Dose: 100 mls/hr Documented by: Cefazolin Sodium 2 gm/ Sodium (Chloride) 110 mls @ 150 mls/hr IV Q8 [facility] Last Infusion: 11/16/19 06:31 Dose: Infused Documented by: Ondansetron HCl (Zofran) 4 mg IV Q8H PRN PRN PRN Reason: Nausea Last Admin: 11/16/19 08:56 Dose: 4 mg Documented by: Prochlorperazine Maleate (Compazine Tablet) 5 - 10 mg PO Q6H PRN PRN PRN Reason: Nausea/vomiting Sodium Chloride () 10 - 40 ml IV UD PRN PRN Reason: SALINE FLUSH Last Admin: 11/16/19 09:00 Dose: 20 ml Documented by: Discharge Diet: No Restrictions Discharge Activity: May Not Drive, May Not Shower, Use Walker, Use Crutches Ice area for (Minutes): 20 Weight Bearing Status: No weight bearing Keep extremity elevated above heart level: Left Leg Additional Activity Instructions:: 1. Keep the dressing clean, dry, intact to the left foot and leg. Do not get dressing wet. If get dressing wet, call office for further instructions. 2. Ice around the left knee 20 minutes on, 20 minutes off, every hour while awake for the next 2 weeks. 3. Elevate left foot above level of heart as often as possible for the next 2 weeks. 4. No walking or standing on left foot. Use crutches/walker/knee scooter as needed. 5. Begin taking Vicodin, doxycycline (antibiotic) and aspirin upon discharge. Vicodin is to be taken as needed. Doxycycline and aspirin are to be taken as instructed, beginning on 11/16/2019 Call your doctor if your incision/area has: Sudden Increased Bleeding, Increased Pain/ Swelling Call your doctor if you observe: Fever of 101 or Higher, Coldness, Increased Pain, Inability to have a bowel movement, Shortness of breath, Chest pain, Prolonged hiccoughing, Increased palpitations (irregular heartbeat), Calf discomfort, Uncontrolled pain Change Dressing in (Days):: 0 - DO NOT REMOVE DRESSING Cleanse incision/area with: Keep Dressing Clean & Dry Home Medications: Medications to take at Discharge Acetaminophen [Tylenol Extra Strength] 500 - 1,000 mg PO Q6H PRN PRN 11/12/19 Primary Care Physician: Sri Gordon NP-C [Primary Care Provider] - Please Follow Up With: Landon Melendez DPM When: at pre-scheduled appointment Disposition: Home Minutes spent on discharge:: 30 Patient Condition:: Good Medical Necessity - Tobacco Use Smoking Status: Never smoker Tobacco Use: Chew Meaningful Use Info Meaningful Use Diagnoses (Choose all that apply): None applicable Inpatient E&M: 55366 Disch Hosp
== END 2019-11-16 12:07 | disposition home or self-care (01) ==
LOC: SDC 19:41 → MS3 19:42 → PCU 11-16 07:07
PROVIDERS: Anesthesiology; Admitting Provider Podiatrist Foot & Ankle Surgery; PCP Nurse Practitioner Family; Referring Provider Podiatrist Foot & Ankle Surgery; Visit Provider Podiatrist Foot & Ankle Surgery
DX: M19.072 Primary osteoarthritis, left ankle and foot (principal); M19.172 Post-traumatic osteoarthritis, left ankle and foot; Z79.899 Other long term (current) drug therapy; Z79.82 Long term (current) use of aspirin; M21.42 Flat foot [pes planus] (acquired), left foot; M79.672 Pain in left foot; F17.220 Nicotine dependence, chewing tobacco, uncomplicated
CPT/HCPCS: 01480; 27687; 28725; 28740; 36415; 71046; 73610; 73630; 76000; 80048; 83036; 84550; 85025; 85610; 85652; 86038; 86140; 86431; 87635; 93005; 94640; 96361; 96365; 96366; 96372; 96375; 96376; 97802; 99218; C1713; G2023; J7120; A4216; G0378; G0379; J2405; U0003

== ENCOUNTER 2020-09-16 10:56 | Emergency (ER) | payer OTHER, SELFPAY ==
[2019-11-15 21:49] VITALS: BMI 35.2
[2020-09-16 10:57] VITALS: BP 153/95; PULSE 90; RESP 16; TEMP 37.4; O2SAT 100; BMI 33.9
--- NOTE | 2020-09-16 11:24 | ED.DCSUM_ITS ---
- ER Visit Summary Date of Service: 09/16/20 Chief Complaint: Rash History of Present Illness: The patient is a 35 M with a rash to his face and extremities. This started gradually over the past 9 days. He was pulling poison ranulfo kenneth off of his house. He was seen at an outside hospital and treated with a dose of Kenalog IM and started on a 6-day taper of prednisone starting at 60 mg?[id number]. He is taking Benadryl and topical [id number] medicines, but his symptoms are worsening. He has increasing swelling and redness to his face. No trouble breathing, talking, swallowing. No wheezing. No GI symptoms. No confusion or other associated symptoms. No history of anaphylaxis. No other exposures. No fevers or systemic illness. Physical Examination: Vital signs unremarkable. Patient has erythema and diffuse swelling to his face with some excoriations and a red rash to his bilateral lower extremities and right upper extremity. Otherwise his exam is unremarkable. His lungs are clear. Abdomen is soft. Test Results: None indicated Emergency Department Course and Treatment: Patient has a rash after exposure to poison ranulfo. No signs of anaphylaxis, bacterial superinfection, or other compl ication. Airway is intact. No systemic symptoms. I believe patient's medication regimen can be optimized. We will start him on a 3-week taper of prednisone. Continue antihistamines regularly. Follow-up with primary care or return if worse. Treatment Plan: As above Disposition: Discharge Impression: Poison ranulfo rash This note was generated with [employer] dictation software. It may contain incorrect words, spelling, and punctuation that were not noted in review of the chart prior to signing ED Disposition - Plan for ED Patient: Referrals: Sri Gordon NP, RECORDS SECTION SUPERVISOR-C [Primary Care Provider] -
--- NOTE | 2020-09-16 11:27 | DCINST.ED_ITS ---
ED Disposition - Plan for ED Patient: Instructions: ED Poison Rhonda Rash Prescriptions: Prednisone 10 mg PO DAILY #63 tablet Prescription Printed Referrals: Sri Gordon NP, MEDICAL IMAGING TECHNICIAN-C [Primary Care Provider] -
== END 2020-09-16 11:57 | disposition home or self-care (01) ==
PROVIDERS: Emergency Provider Emergency Medicine
DX: L23.7 Allergic contact dermatitis due to plants, except food (principal)
CPT/HCPCS: 99282